=== PATIENT | female | born 1935 | race Caucasian/White ===

== ENCOUNTER 2020-07-17 10:26 | Observation (INO) ==
[2020-07-17 10:39] VITALS: BMI 39.3
--- NOTE | 2020-07-17 10:54 | DR.EXTPAIN ---
HPI Time seen Time Seen by Provider: 07/17/20 10:46 PCP Primary Care Physician: JF DENG Complaint/Symptoms Chief Complaint:: PATIENT CAME TO ER REPORTS "SLEPT WRONG PULLED MUSCLE AND LEFT SIDE ABDOMINAL PAIN". COVID-19 Coronavirus risk:travel/contact w/high risk person: No Has patient experienced Coronavirus symptoms: No Source History Provided: Patient Mode of arrival Mode of Arrival: Ambulatory Timing Onset of Chief Complaint: 07/17/20 PMH PMH Past Medical History: Yes Past Medical History: Dyslipidemia, Hypertension and [place] Past Medical History Comment: STAGE 2 KIDNEY DISEASE Past Surgical History: Yes Surgical History: and Cholecystectomy Past Surgical History Comment: CARDIAC STENT Family History History of Family Medical Conditions: Yes Family Medical History: Coronary Artery Disease Social History Alcohol Use: None Do you use any recreational Drugs:: No Lives With: Spouse Lives Where: Home Travel Risk Coronavirus risk:travel/contact w/high risk person: No Has patient experienced Coronavirus symptoms: No Infectious screening In the last 2 months have you had wt loss of >10#?: NO Have you had fever, night sweats or hemotysis?: No Have you traveled outside the country in the last 6 months?: No Isolation: Standard PE Vital Signs Vitals: Temperature 36.7 C Pulse Rate 94 Respiratory Rate 20 Blood Pressure 159/75 O2 Sat by Pulse Oximetry 96 Opioid Opioid Risk Tool Age (Brian box if 16-45): No History of Preadolescent Sexual Abuse: No Total: 0 Total Score Risk Category: Low Risk Copyright: Duglas ANDERSON predicting aberrant behaviors
[2020-07-17] MEDS ORDERED: MORPHINE SULFATE INJ 4 MG IVP ONE (10:59)
[2020-07-17] MEDS ORDERED: ZOFRAN INJ 4 MG VIAL IVP ONE (10:59)
[2020-07-17] MEDS ORDERED: MORPHINE SULFATE INJ 4 MG ONE (11:02)
[2020-07-17] MEDS ORDERED: ZOFRAN INJ 4 MG VIAL ONE (11:02)
--- NOTE | 2020-07-17 11:02 | ED.ABDFE ---
HPI Time Seen Time Seen by Provider: 07/17/20 10:46 PCP Primary Care Physician: JF DENG Complaint Chief Complaint:: PATIENT CAME TO ER REPORTS "SLEPT WRONG PULLED MUSCLE AND LEFT SIDE ABDOMINAL PAIN". COVID-19 Coronavirus risk:travel/contact w/high risk person: No Has patient experienced Coronavirus symptoms: No Source History Provided: Patient Mode of arrival Mode of Arrival: Ambulatory Timing Onset of Chief Complaint: 07/17/20 Came on: Gradually Duration How lon Duration: Days Location Location: [facility] Severity Severity: Moderate Quality Quality: Sharp Context History of: Abdominal surgery Modifying factors Worsening Factors: Nothing Improving Factors: Nothing Associated signs and symptoms Associated Signs and Symptoms: Constipation; denies Nausea, Vomiting, Diarrhea, Hematemesis, Hematochezia, Melena, Dysuria, Frequency, Urgency and Hematuria PMH PMH Past Medical History: Yes Past Medical History: Dyslipidemia, Hypertension and [place] Past Medical History Comment: STAGE 2 KIDNEY DISEASE Past Surgical History: Yes Surgical History: and Cholecystectomy Past Surgical History Comment: CARDIAC STENT Family History History of Family Medical Conditions: Yes Family Medical History: Coronary Artery Disease Social History Alcohol Use: None Do you use any recreational Drugs:: No Lives With: Spouse Lives Where: Home Travel Risk Coronavirus risk:travel/contact w/high risk person: No Has patient experienced Coronavirus symptoms: No Infectious screening In the last 2 months have you had wt loss of >10#?: NO Have you had fever, night sweats or hemotysis?: No Have you traveled outside the country in the last 6 months?: No Isolation: Standard ROS Review of Systems Constitutional: No Symptoms Reported Eyes: No Symptoms Reported ENTM: No Symptoms Reported Respiratoy: No Symptoms Reported Cardiovascular: No Symptoms Reported Gastrointestinal/Abdominal: Abdominal Pain and Constipation; negative Diarrhea, Nausea and Vomiting Genitourinary: No Symptoms Reported; negative Dysuria, Frequency and Pain Neurological: No Symptoms Reported Musculoskeletal: No Symptoms Reported Integumentary: No Symptoms Reported Hematologic/Lymphatic: No Symptoms Reported Endocrine: No Symptoms Reported Psychiatric: No Symptoms Reported All Other Systems: Reviewed and Negative PE Vital Signs Vitals: Temperature 36.7 C Pulse Rate 94 Respiratory Rate 20 Blood Pressure 159/75 O2 Sat by Pulse Oximetry 96 General Limitations: No Limitations and Language Barrier General Appearance: Alert, In No Apparent Distress and Obese Head Head Exam: Normal Inspection Eyes Eye exam: Normal Appearance ENT ENT Exam: Normal Exam Neck Neck Exam: Normal Inspection Chest Chest Inspection: Normal Inspection Respiratory Respiratory Exam: Normal Lung Sounds Bilat Cardiovascular Cardiovascular Exam: Regular Rate and Normal Rhythm Abdominal Exam Abdominal Exam: Normal Bowel Sounds, Tenderness and Guarding; negative Distention and Rebound Abdominal Tenderness: LUQ and LLQ Rectal Rectal Exam: Deferred Back Back Exam: Normal Inspection Extremeties Extremities Exam: Normal Inspection Neurologic Neurological Exam: Alert and Oriented X3 Psychiatric Psychiatric Exam: Normal Affect and Normal Mood Skin Skin Exam: Warm, Dry and Intact MDM Differential Diagnosis Differential Diagnosis- Considerations may include:: Bowel Obstruction, Constipation, Diverticular disease, Gastritus/PUD, Gastroenteritis, Urinary tract infection and Urolithiasis COURSE Treatment Treatment: 85 yo w/ c/o left sided abd pain in setting of recent constipation. Multiple abdominal surgeries in the past. No leukocytosis or fever. CT of abd w/ large colonic dilation and noted stricture at level of splenic flecture, can not exclude early bowel ischemia. Will order lactate. Continue ivf's. Will order blood cx's. d/w Dr Kohli whom agrees to admit. soap suds enema/ mag citrate ordered. Education/Counseling Education/Counseling: Patient and Family Educated On: Treatment, Diagnosis, Prognosis and Needs for Follow Up ROR Labs Reviewed Laboratory Results Reviewed?: Yes Result Diagrams: 07/17/20 11:16 07/17/20 11:16 Laboratory: WBC 9.2 X10^3/uL (3.6-10.0) 07/17/20 11:16 RBC 3.97 X10^6/uL (3.5-5.4) 07/17/20 11:16 Hgb 12.3 g/dL (12.0-16.0) 07/17/20 11:16 Hct 35.9 % (36.0-47.0) L 07/17/20 11:16 MCV 90.4 fL (80.0-100.0) 07/17/20 11:16 MCH 30.8 pg (27.0-34.0) 07/17/20 11:16 MCHC 34.1 g/dL (33.0-35.0) 07/17/20 11:16 RDW 13.3 % (11.6-16.5) 07/17/20 11:16 Plt Count 233 X10^3/uL (150.0-450.0) 07/17/20 11:16 MPV 7.9 fL (7.4-11.0) 07/17/20 11:16 Neut % (Auto) 62.8 % (42.0-75.0) 07/17/20 11:16 Lymph % (Auto) 22.2 % (21.0-51.0) 07/17/20 11:16 [place] % (Auto) 11.6 % (0.0-13.0) 07/17/20 11:16 Eos % (Auto) 2.8 % (0.9-2.9) 07/17/20 11:16 Baso % (Auto) 0.6 % (0.2-1.0) 07/17/20 11:16 Neut # (Auto) 5.8 x10^3/uL (2.2-4.8) H 07/17/20 11:16 Lymph # (Auto) 2.0 X10^3/uL (1.3-2.9) 07/17/20 11:16 [place] # (Auto) 1.1 x10^3/uL (0.3-0.8) H 07/17/20 11:16 Eos # (Auto) 0.3 x10^3/uL (0.0-0.2) H 07/17/20 11:16 Baso # (Auto) 0.1 X10^3/uL (0.0-0.1) 07/17/20 11:16 Absolute Nucleated RBC 0.0 /100WBC 07/17/20 11:16 Sodium 140 mmol/L (136-145) 07/17/20 11:16 Corrected Sodium TNP 07/17/20 11:16 Potassium 4.2 mmol/L (3.5-5.1) 07/17/20 11:16 Chloride 105 mmol/L (98-107) 07/17/20 11:16 Carbon Dioxide 24.4 mmol/L (21-32) 07/17/20 11:16 BUN 16 mg/dL (7-18) 07/17/20 11:16 Creatinine 1.11 mg/dL (0.55-1.02) H 07/17/20 11:16 Est GFR (MDRD) Af Amer > 60 (>60) 07/17/20 11:16 Est GFR (MDRD) Non-Af 50 (>60) L 07/17/20 11:16 Glucose 103 mg/dL (65-99) H 07/17/20 11:16 Calcium 8.8 mg/dL (8.5-10.1) 07/17/20 11:16 Corrected Calcium 9.4 mg/dL (8.5-10.1) 07/17/20 11:16 Total Bilirubin 1.20 mg/dL (0.2-1.0) H 07/17/20 11:16 AST 17 Units/L (15-37) 07/17/20 11:16 ALT 18 Units/L (12-78) 07/17/20 11:16 Alkaline Phosphatase 110 Units/L (46-116) 07/17/20 11:16 Total Protein 7.5 g/dL (6.4-8.2) 07/17/20 11:16 Albumin 3.2 g/dL (3.4-5.0) L 07/17/20 11:16 Globulin 4.3 g/dL (2.5-4.5) 07/17/20 11:16 Albumin/Globulin Ratio 0.7 Ratio (1.1-2.1) L 07/17/20 11:16 Specimen Type Clean catch urine 07/17/20 13:12 Urine Color Yellow (YELLOW) 07/17/20 13:12 Urine Appearance Cloudy (CLEAR) 07/17/20 13:12 Urine pH 5.0 (5.0 - 8.0) 07/17/20 13:12 Ur Specific [place] 1.020 (1.000-1.030) 07/17/20 13:12 Urine Protein Negative (NEGATIVE) 07/17/20 13:12 Urine Glucose (UA) Negative (NEGATIVE) 07/17/20 13:12 Urine Ketones Negative (NEGATIVE) 07/17/20 13:12 Urine Occult Blood Negative (NEGATIVE) 07/17/20 13:12 Urine Nitrite Negative (NEGATIVE) 07/17/20 13:12 Urine Bilirubin Negative (NEGATIVE) 07/17/20 13:12 Urine Urobilinogen Normal (NORMAL) 07/17/20 13:12 Ur Leukocyte Esterase Negative (NEGATIVE) 07/17/20 13:12 XRAY XRAY Interpreted by: Radiologist X-ray Results: CT ABDOMEN/PELVIS WITH iv CONtrast IMPRESSION There is focal stricture of the colon at the splenic flexure with moderate surrounding fat stranding. No obvious mass can be identified, but follow-up colonoscopy should be considered if not recently performed. Other considerations include post ischemic stenosis or adhesions. Free fluid tracks along the left paracolic gutter. Developing acute bowel ischemia is not excluded. There is otherwise moderate gaseous distention of the transverse and descending colon with transition at the descending colon-sigmoid junction. Multiple chronic findings as above. Opioid Opioid Risk Tool Age (Brian box if 16-45): No History of Preadolescent Sexual Abuse: No Total: 0 Total Score Risk Category: Low Risk Copyright: Duglas ANDERSON predicting aberrant behaviors Diagnosis Discharge Problem: Bowel obstruction Qualifiers: Intestinal obstruction type: unspecified Intestinal obstruction extent: partial Qualified Code(s): K56.600 - Partial intestinal obstruction, unspecified as to cause Instructions Forms: Patient Portal Social Distancing
[2020-07-17 11:22] LABS: BASOPHILS # (AUTO) 0.1 X10^3/uL (0.0-0.1); BASOPHILS % (AUTO) 0.6 % (0.2-1.0); EOSINOPHILS # (AUTO) 0.3 x10^3/uL (0.0-0.2); EOSINOPHILS % (AUTO) 2.8 % (0.9-2.9); HEMATOCRIT 35.9 % (36.0-47.0); HEMOGLOBIN 12.3 g/dL (12.0-16.0); LYMPHOCYTES % (AUTO) 22.2 % (21.0-51.0); MEAN CORPUSCULAR HEMOGLOBIN 30.8 pg (27.0-34.0); MEAN CORPUSCULAR HGB CONC 34.1 g/dL (33.0-35.0); MEAN CORPUSCULAR VOLUME 90.4 fL (80.0-100.0); MEAN PLATELET VOLUME 7.9 fL (7.4-11.0); MONOCYTES # (AUTO) 1.1 x10^3/uL (0.3-0.8); MONOCYTES % (AUTO) 11.6 % (0.0-13.0); NEUTROPHILS # (AUTO) 5.8 x10^3/uL (2.2-4.8); NEUTROPHILS % (AUTO) 62.8 % (42.0-75.0); PLATELET COUNT 233 X10^3/uL (150.0-450.0); RED BLOOD COUNT 3.97 X10^6/uL (3.5-5.4); RED CELL DISTRIBUTION WIDTH 13.3 % (11.6-16.5); WHITE BLOOD COUNT 9.2 X10^3/uL (3.6-10.0)
[2020-07-17 11:34] LABS: ALANINE AMINOTRANSFERASE 18 Units/L (12-78); ALBUMIN 3.2 g/dL (3.4-5.0); ALKALINE PHOSPHATASE 110 Units/L (46-116); ASPARTATE AMINO TRANSFERASE 17 Units/L (15-37); BLOOD UREA NITROGEN 16 mg/dL (7-18); CALCIUM 8.8 mg/dL (8.5-10.1); CARBON DIOXIDE 24.4 mmol/L (21-32); CHLORIDE 105 mmol/L (98-107); COR CA(FOR HYPOALB) 9.4 mg/dL (8.5-10.1); CREATININE 1.11 mg/dL (0.55-1.02); SODIUM 140 mmol/L (136-145); TOTAL PROTEIN 7.5 g/dL (6.4-8.2); eGFR NON BLACK RACES 50 (>60)
[2020-07-17] MEDS ORDERED: NS 1000 ML 1,000 ML IV ONE (11:59)
[2020-07-17] MEDS ORDERED: NS 1000 ML 1,000 ML ONE (12:01)
[2020-07-17] MEDS ORDERED: NS 100 ML IV 100 ML IV ONE (12:47)
[2020-07-17 13:18] LABS: BILIRUBIN,URINE NEGATIVE (NEGATIVE); BLOOD/HEMOGLOBIN,URINE NEGATIVE (NEGATIVE); GLUCOSE, URINE NEGATIVE (NEGATIVE); KETONES,URINE NEGATIVE (NEGATIVE); LEUKOCYTE ESTERASE ,URINE NEGATIVE (NEGATIVE); NITRITES,URINE NEGATIVE (NEGATIVE); PROTEIN,URINE NEGATIVE (NEGATIVE); UROBILINOGEN,URINE NORMAL (NORMAL)
[2020-07-17 13:39] LABS: APPEARANCE,URINE CLOUDY (CLEAR); COLOR,URINE YELLOW (YELLOW)
--- NOTE | 2020-07-17 13:44 | CT ---
HISTORYLeft-sided abdominal painSTUDYCT ABDOMEN/PELVIS WITH CONCOMPARISONNoneTECHNIQUECT images of the abdomen and pelvis were obtained with IV contrast. Dose reduction techniques including Automated Exposure Control (AEC) and adjustment of mA and kV were utilized.FINDINGSThere is generalized osteopenia with advanced multilevel spine degenerative disease and mild lumbar levoscoliosis, grade 1 anterolisthesis of L4 on L5. No acute osseous abnormality identified. Images through lower chest demonstrate chronic appearing mild interstitial changes of the lungs. There is small hiatal hernia of the stomach. Mild cardiomegaly.Prior cholecystectomy is noted. The liver, spleen, stomach, pancreas, adrenals, and kidneys demonstrate no significant abnormality. There is moderate gas is distention of the transverse and descending colon, although there is a focal stricture in the region of the splenic flexure with moderate surrounding fat stranding. No definite mass can be identified. No pneumatosis or free air identified. There is trace fluid tracking along the left paracolic gutter. There is additional focal narrowing in the region of the descending colon-sigmoid junction, without surrounding fat stranding or definite mass. The more distal colon is no to the decompressed. There is liquid stool within the rectum, which is otherwise grossly unremarkable. No dilated small bowel loops. The uterus is noted. The bladder is unremarkable.IMPRESSIONThere is focal stricture of the colon at the splenic flexure with moderate surrounding fat stranding. No obvious mass can be identified, but follow-up colonoscopy should be considered if not recently performed. Other considerations include post ischemic stenosis or adhesions.Free fluid tracks along the left paracolic gutter. Developing acute bowel ischemia is not excluded.There is otherwise moderate gaseous distention of the transverse and descending colon with transition at the descending colon-sigmoid junction.Multiple chronic findings as above.Electronically signed by: NENITA SOLIZ (Jul 17, 2020 13:41:27)
[2020-07-17] MEDS ORDERED: CITROMA PO ONE (13:56)
[2020-07-17] MEDS ORDERED: ZOFRAN INJ 4 MG VIAL IVP PRN (13:56)
[2020-07-17] MEDS: NS 1000 ML 1,000 ML IV SCH ×2 (16:00→21:05)
[2020-07-18] MEDS: NS 1000 ML 1,000 ML IV SCH (05:48)
[2020-07-18 12:55] VITALS: BP 138/63
== END 2020-07-18 13:50 | disposition home or self-care (01) ==
LOC: MED/SURG 10:31 → ER 10:31 → MED/SURG 14:43
PROVIDERS: ADMIT Obstetrics & Gynecology Obstetrics; ATTEND Obstetrics & Gynecology Obstetrics
DX: Z20.822 Contact with and (suspected) exposure to COVID-19; N18.2 Chronic kidney disease, stage 2 (mild); I25.10 Atherosclerotic heart disease of native coronary artery without angina pectoris; K56.600 Partial intestinal obstruction, unspecified as to cause; E78.2 Mixed hyperlipidemia; I12.9 Hypertensive chronic kidney disease with stage 1 through stage 4 chronic kidney disease, or unspecified chronic kidney disease; K59.09 Other constipation; R10.84 Generalized abdominal pain